=== PATIENT | male | born 1970 | race American Indian/Alaskan Native ===

== ENCOUNTER 2016-04-10 10:34 | Inpatient (IN) | payer OTHER ==
--- NOTE | 2016-04-10 10:52 | Emergency Department Report ---
Chief Complaint: High BP Stated Complaint: HIGH BP Time Seen by Provider: 04/10/16 10:48 - HPI History of Present Illness: Patient here reports that she has been having headache to his left temporal and around his eyes that's 10 out of 10 and throbbing. He said his blood pressures been elevated for 2 days and does not have any history of high blood pressure. He denies any medical history. Paternal and maternal high blood pressure and diabetes. He is also complaining the dizziness and blurred vision. He reports that he has numbness to his right thumb. Denies any shortness of breath or chest pain. His reports that blood pressure at home this morning was 180/ 120 in triage is 150/112. - ROS Review of Systems: All systems are negative unless stated in HPI above. - Exam Vital Signs: Vital Signs 04/10/16 10:39 Temperature 98.5 F Pulse Rate 56 L Respiratory 20 Rate Blood Pressure 150/112 O2 Sat by Pulse 100 Oximetry Physical Exam: General: This is a 45-year-old male well-nourished well-developed that is nontoxic in appearance. Mini-Neuro: GCS of 15, speech is clear and fluid. Negative pronator drift, positive Romberg. Patient alert and oriented 3. No facial drooping noted. CV:BP Pressure is 150/112. Bradycardic at 56. S1-S2. MSE screening note: Focused history and physical exam performed. Due to findings the following was ordered:see [facility] ED Medical Decision Making - Medical Decision Making Medical decision making: Patient seen by provider in triage area. Appropriate protocol activated and patient to main ED to be seen by physician. ED Disposition for MSE Condition: Stable
[2016-04-10 11:36] LABS: Basophils % (Auto) 0.4 % (0.0-1.8); Eosinophils % (Auto) 0.7 % (0.0-4.3); Hematocrit 46.9 % (35.5-45.6); Hemoglobin 15.8 gm/dl (11.8-15.2); Mean Corpuscular HGB Conc 34 % (32-34); Mean Corpuscular Hemoglobin 32 pg (28-32); Mean Corpuscular Volume 96 fl (84-94); Platelet Count 199 K/mm3 (140-440); Red Blood Count 4.88 M/mm3 (3.65-5.03); Red Cell Distribution Width 12.3 % (13.2-15.2); White Blood Count 10.2 K/mm3 (4.5-11.0)
--- NOTE | 2016-04-10 11:37 | Cat Scan Report ---
CT HEAD WITHOUT CONTRAST: HISTORY: Headache. Serial contiguous axial images were obtained through the cranium. Intravenous contrast material was not administered. The ventricles are normal in size and appearance. There is no mass effect or midline shift. No areas of abnormally increased or decreased attenuation are seen. No mass lesion is seen. The mastoid air cells and visualized portions of the sinuses are normal. IMPRESSION: Cranial CT scan within normal limits.
[2016-04-10 11:47] LABS: INR 1.06 (0.87-1.13)
[2016-04-10 11:48] LABS: Partial Thromboplastin Time 31.7 Sec. (24.2-36.6)
[2016-04-10 11:55] LABS: Alanine Aminotransferase 32 units/L (7-56); Albumin 4.4 g/dL (3.9-5); Albumin/Globulin Ratio 1.4 %; Alkaline Phosphatase 104 units/L (35-129); Anion Gap 19 mmol/L; BUN/Creatinine Ratio 21.11; Bilirubin,Total 0.9 mg/dL (0.1-1.2); Blood Urea Nitrogen 19 mg/dL (9-20); Calcium 9.2 mg/dL (8.4-10.2); Carbon Dioxide 23 mmol/L (22-30); Chloride 102.2 mmol/L (98-107); Glucose 98 mg/dL (75-100); Potassium 4.3 mmol/L (3.6-5.0); Sodium 140 mmol/L (137-145); Total Protein 7.5 g/dL (6.3-8.2)
[2016-04-10 11:57] LABS: Bilirubin,Urine NEG (Negative); Blood,Urine NEG (Negative); Ketones,Urine TR mg/dL (Negative); Leukocyte Esterase,Urine NEG (Negative); Mucus,Urine 3+ /HPF; Nitrite,Urine NEG (Negative); Protein,Urine <15 mg/dL mg/dL (Negative); Urobilinogen,Urine < 2.0 mg/dL (<2.0); WBC,Urine < 1.0 /HPF (0.0-6.0)
--- NOTE | 2016-04-10 13:10 | Emergency Department Report ---
HPI - General Chief Complaint: High BP Time Seen by Provider: 04/10/16 10:48 - HPI HPI: Chief complaint: Headache and off balance HPI: Patient with no medical history states he's been having a headache and difficulty seeing and feeling off balance for the last 3 days. Patient's took his blood pressure today and noticed it was 180/120 at home and brought him into the emergency department. Patient denies any other symptoms. Mode of arrival: private car and Source: Patient old chart family member Began: Monday Duration: Gradual onset Context: No upper respiratory infections no previous headaches Quality: Dull behind the eyes and in the temples and on the back of his head Severity: 10 out of 10 Improved with: No improvement with ibuprofen Worsened with: Were when he attempts to walk. She has difficulty walking secondary to his balance. Associated signs and symptoms: Questionable double vision ED Past Medical Hx - Past Medical History Previous Medical History?: No - Surgical History Past Surgical History?: No - Family History Family history: diabetes, hypertension - Social History Smoking Status: Current Every Day Smoker Substance Use Type: Alcohol, Non Opiate Pain - Medications Home Medications: Home Medications Medication Instructions Recorded Confirmed Last Taken Type No Known Home Medications [No 04/10/16 04/10/16 Unknown History Reported Home Medications] ED Review of Systems ROS: Stated complaint: HIGH BP Other details as noted in HPI ROS Constitutional: No fever ENT: No uri symptoms Cardiovascular: No chest pain Respiratory: No sob or cough GI: No nausea vomiting or diarrhea : No dysuria frequency or urgency, Skin: No rash Neuro: See HPI Psych: No depression [place]/lymph: No edema Physical Exam - Physical Exam Vital Signs: Vital Signs 04/10/16 04/10/16 04/10/16 10:39 12:39 12:40 Temperature 98.5 F Pulse Rate 56 L 59 L Respiratory 20 18 Rate Blood Pressure 150/112 136/101 O2 Sat by Pulse 100 98 98 Oximetry 04/10/16 04/10/16 12:41 12:45 Temperature Pulse Rate 59 L 57 L Respiratory 18 19 Rate Blood Pressure 136/101 149/104 O2 Sat by Pulse 98 98 Oximetry Physical Exam: GENERAL: The patient is well-developed well-nourished . HEENT: Normocephalic. Atraumatic. Extraocular motions are intact. Patient has moist mucous membranes. NECK: Supple. No meningitic signs are noted. There is no adenopathy noted. CHEST/LUNGS: Clear to auscultation. There is no respiratory distress noted. HEART/CARDIOVASCULAR: Regular. There is no tachycardia. There is no gallop rub or murmur. ABDOMEN: Abdomen is soft, nontender. Patient has normal bowel sounds. There is no abdominal distention. SKIN: There is no rash. There is no edema. There is no diaphoresis. NEURO: The patient is awake, alert, and oriented. The patient is cooperative. The patient has normal speech. MUSCULOSKELETAL: There is no tenderness or deformity. There is no limitation range of motion. There is no evidence of acute injury. ED Course Vital Signs 04/10/16 04/10/16 04/10/16 10:39 12:39 12:40 Temperature 98.5 F Pulse Rate 56 L 59 L Respiratory 20 18 Rate Blood Pressure 150/112 136/101 O2 Sat by Pulse 100 98 98 Oximetry 04/10/16 04/10/16 12:41 12:45 Temperature Pulse Rate 59 L 57 L Respiratory 18 19 Rate Blood Pressure 136/101 149/104 O2 Sat by Pulse 98 98 Oximetry ED Medical Decision Making - Lab Data Result diagrams: 04/10/16 11:17 04/10/16 11:17 Laboratory Tests 04/10/16 04/10/16 11:17 Unknown PT 13.7 INR 1.06 APTT 31.7 Urine pH 6.0 Ur Specific [place] 1.025 Urine Protein <15 mg/dl Urine Glucose (UA) Neg Urine Ketones Tr Urine Blood Neg Urine Nitrite Neg Urine Bilirubin Neg Urine Urobilinogen < 2.0 Ur Leukocyte Esterase Neg Urine WBC (Auto) < 1.0 Urine RBC (Auto) 2.0 - EKG Data -: EKG Interpreted by Id EKG shows normal: sinus rhythm Rate: normal (63) - EKG Data When compared to previous EKG there are: previous EKG unavailable Interpretation: normal EKG - Radiology Data Radiology results: report reviewed (CT head shows no acute process.) - Medical Decision Making Questionable cerebellar CVA. Patient's blood pressure improved without any treatment and because of the concern for a stroke will not treat it at this time and aggressively in the emergency department. Will admit the patient for further workup to rule out CVA. Critical care attestation.: If time is entered above; I have spent that time in minutes in the direct care of this critically ill patient, excluding procedure time. ED Disposition Clinical Impression: Hypertensive urgency Disposition: OP ADMITTED IP TO THIS HOSP Is pt being admited?: Yes Does the pt Need Aspirin: Yes Condition: Fair Time of Disposition: 13:01 (admit to the hospitalist) - Assessment Assessment Interval: Baseline - Level of Consciousness 1a. Level of Consciousness: alert - LOC Questions 1b. LOC Questions: answers correctly - LOC Command 1c. LOC Commands: performs tasks correctly - Best Gaze 2. Best Gaze: normal - Visual 3. Visual: no visual loss - Facial Palsy 4. Facial Palsy: normal symmetrical movement - Motor Arm 5b. Motor Arm Right: no drift 5a. Motor Arm Left: no drift - Motor Leg 6a. Motor Leg Left: no drift 6b. Motor Leg Right: no drift - Limb Ataxia 7. Limb Ataxia: present 1 limb (Left upper extremity with past pointing) - Sensory 8. Sensory: normal - Best Language 9. Best Language: no aphasia - Dysarthria 10. Dysarthria: normal - Extinction and Inattention 11. Extinction/Inattention: no abnormality - Scoring Total Score: 1 Stroke Severity: Minor Stroke
[2016-04-10] MEDS ORDERED: ASPIRIN PO ONE (13:13)
[2016-04-10] MEDS: ASPIRIN PO SCH (14:36)
[2016-04-10] MEDS ORDERED: COZAAR PO SCH (15:00)
[2016-04-10 15:07] LABS: Alanine Aminotransferase 29 units/L (7-56); Albumin 4.2 g/dL (3.9-5); Albumin/Globulin Ratio 1.5 %; Alkaline Phosphatase 99 units/L (35-129); Anion Gap 15 mmol/L; Bilirubin,Total 0.7 mg/dL (0.1-1.2); Blood Urea Nitrogen 18 mg/dL (9-20); Carbon Dioxide 27 mmol/L (22-30); Chloride 100.8 mmol/L (98-107); Glucose 91 mg/dL (75-100); Potassium 4.6 mmol/L (3.6-5.0); Sodium 138 mmol/L (137-145)
[2016-04-10] MEDS: MORPHINE IV PRN (16:56)
--- NOTE | 2016-04-10 22:52 | History and Physical Report ---
History of Present Illness Date of examination: 04/10/16 Date of admission: 04/10/16 13:14 Chief complaint: Neck, poor balance -2 day duration. History of present illness: Patient is a 45-year-old gentleman who was in apparent good health up until 2 days ago when he started feeling some slight dizziness on ambulating. Progressively was having loss of balance. Seemed to be spinning around and wanted to hold on things while ambulating. This was associated with bitemporal headache, and sometimes occipital.Symptoms are getting progressively worse. 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 Patient had no past history of hypertension. However he's been over about 12months when he went last went to a doctor. Patient was brought to the emergency department. CT scan of the brain was unremarkable for any acute event. Patient denies any nausea vomiting. No chest pain or shortness of breath. Admission was therefore requested for further evaluation. Past History Past Medical History: No medical history Past Surgical History: No surgical history Social history: denies: smoking, alcohol abuse, IV drug use Medications and Allergies Allergies Allergy/AdvReac Type Severity Reaction Status Date / Time No Known Allergies Allergy Unverified 08/20/15 13:19 Home Medications Medication Instructions Recorded Confirmed Last Taken Type No Known Home Medications [No 04/10/16 04/10/16 Unknown History Reported Home Medications] Active Meds: Active Medications Aspirin (Aspirin) 325 mg PO QDAY [facility] Last Admin: 04/10/16 14:36 Dose: Not Given Atorvastatin Calcium (Lipitor) 40 mg PO QHS [facility] Last Admin: 04/10/16 21:10 Dose: 40 mg Losartan Potassium (Cozaar) 50 mg PO QDAY [facility] Last Admin: 04/10/16 15:10 Dose: 50 mg Morphine Sulfate (Morphine) 2 mg IV Q4H PRN PRN Reason: Pain, Moderate (4-6) Last Admin: 04/10/16 16:56 Dose: 2 mg Review of Systems Constitutional: no weight loss, no weight gain, no fever, no chills Ears, nose, mouth and throat: no ear pain, no ear discharge, no tinnitis, no decreased hearing Cardiovascular: no chest pain, no orthopnea, no palpitations, no rapid/ irregular heart beat Respiratory: no cough, no cough with sputum, no excessive sputum Gastrointestinal: no abdominal pain, no nausea, no vomiting, no diarrhea Genitourinary Male: no dysuria, no hematuria Musculoskeletal: no neck stiffness, no neck pain, no hot joints Integumentary: no rash, no pruritis, no redness, no sores Neurological: lack of coordination, vertigo, headaches, no head injury, no transient paralysis, no paralysis, no weakness Psychiatric: no anxiety, no memory loss, no change in sleep habits, no sleep disturbances Endocrine: no cold intolerance, no heat intolerance, no polyphagia, no excessive thirst Hematologic/Lymphatic: no easy bruising, no easy bleeding Allergic/Immunologic: no urticaria, no allergic rhinitis Exam - Constitutional Vitals: Temp Pulse Resp BP Pulse Ox 98.2 F 64 16 136/81 99 04/10/16 21:10 04/10/16 21:10 04/10/16 21:10 04/10/16 21:10 04/10/16 21:10 General appearance: Present: no acute distress - EENT Eyes: Present: PERRL, EOM intact - Neck Neck: Present: supple, normal ROM - Respiratory Respiratory: bilateral: CTA - Cardiovascular Rhythm: regular Heart Sounds: Present: S1 & S2 - Extremities Extremities: no ischemia, pulses intact - Abdominal General gastrointestinal: Present: soft, non-tender, non-distended - Integumentary Integumentary: Present: clear, warm, dry - Musculoskeletal Musculoskeletal: strength equal bilaterally - Psychiatric Psychiatric: appropriate mood/affect - Neurologic Neurologic: CNII-XII intact, other (unsteady gait, positive finger to nose test) Results - Labs CBC & Chem 7: 04/10/16 11:17 04/10/16 14:33 Assessment and Plan - Patient Problems (1) Occipital stroke Diagnosis Date: 04/10/16 Current Visit: Yes Status: Acute Plan to address problem: CT scan was unremarkable. We'll obtain MRI. Carotid Dopplers. If positive I will go for echocardiogram of the heart. Patient on aspirin, Lovenox, atorvastatin, PT OT evaluation and treatment. Neuro check every 4hrs. (2) Hypertensive urgency Diagnosis Date: 04/10/16 Current Visit: Yes Status: Acute Plan to address problem: Progressively optimize blood pressure controlled with losartan. Consequently a low-salt diet and regular office visits with his primary care doctor was advised (3) Benign paroxysmal positional vertigo due to bilateral vestibular disorder Diagnosis Date: 04/10/16 Current Visit: Yes Status: Acute Plan to address problem: Patient gave a history of ambulating with unsteady gait. Occasional feeling of vertigo. If patient had astroke symptoms may be similar however given his age and the severely elevated blood pressure discussed probability. BPPV is less likely as his younger for this condition. We'll therefore obtain an MRI of the brain. Carotid Dopplers were also ordered.
--- NOTE | 2016-04-11 03:27 | Admit Criteria Form ---
Admission Criteria Documentation: VERTIGO Clinical Indications for Admission to Inpatient Care (Place 'X' for any and all applicable criteria): Admission is indicated for ANY ONE of the following(1)(2)(3)(4): [ ]I. Acute bacterial labyrinthitis [ ]II. A suspected etiology that requires admission for treatment [ X]III. Inpatient admission required rather than observation care (Also use Vertigo: Observation Care as appropriate) because of ANY ONE of the following: [ ]a) Hemodynamic instability that is severe or persistent [ X]b) Signs or symptoms that are severe or persistent (eg, vomiting , orthostasis, inability to ambulate) [ ]c) Cardiac arrhythmias of immediate concern [ ]d) Severe (new) neurologic findings requiring inpatient care as indicated by ANY ONE of the following(6)(7) [ ]1) Cerebral bleeding, ischemia, or vasospasm(8)(9) [ ]2) Increased intracranial pressure or hydrocephalus(10) (11)(12) [ ]3) Papilledema [ ]4) Cerebral edema [ ]5) Mass effect on CT scan [ ]e) Vomiting that is severe or persistent [ ]f) Continuous IV infusion of anticoagulation, platelet inhibitor, vasoactive, or antiarrhythmic medication [ ]g) Cerebral bleeding, hydrocephalus, or vasospasm monitoring(14) [ ]h) Increased intracranial pressure or cerebral edema monitoring [ ]i) Other condition, treatment or monitoring requiring inpatient admission [ ]IV. Cerebellar, brainstem, or cerebral ischemia or hemorrhage(5) Extended stay beyond goal length of stay may be needed for evaluating and treating a specific cause of dizziness, including(26): [ ]a) Head injury (27) ( Also use Traumatic Brain Injury, Nonsurgical Treatment guideline) [ ]b) New-onset vertebrobasilar vascular insufficiency(23) [ ]c) Acute Meniere disease with intractable symptoms [ ]d) Cardiac arrhythmias or conduction defects [ ]e) Acute neurologic event causing dizziness [ ]f) Myocardial ischemia [ ]g) Acute bacterial labyrinthitis(1) [ ]h) Severe acute vestibular neuronitis(18) The original [facility] content created by Sada Gonzalez has been revised. The portions of the content which have been revised are identified through the use of italic text or in bold, and Sada Gonzalez has neither reviewed nor approved the modified material. All other unmodified content is copyright [facility]. Please see references footnoted in the original [facility] edition 2016 Admission Criteria Met: Yes
--- NOTE | 2016-04-11 07:15 | Consultation ---
History of Present Illness Consult date: 04/11/16 Reason for Consult: ataxia Chief complaint: aataxia History of present illness: This is a 45 YO M who presented to the ED with ataxia and very elevated blood pressure, 180/120. Per pt no history of hbp but has not seen an MD in 12 months. PT says that the dizziness is better today but still having some ataxia. Also having nystagmus on the day of admission. says pt was having headaches as well. No headache currently. Past History Past Medical History: No medical history Past Surgical History: No surgical history Social history: denies: smoking, alcohol abuse, IV drug use Medications and Allergies Allergies Allergy/AdvReac Type Severity Reaction Status Date / Time No Known Allergies Allergy Unverified 08/20/15 13:19 Home Medications Medication Instructions Recorded Confirmed Last Taken Type No Known Home Medications [No 04/10/16 04/10/16 Unknown History Reported Home Medications] Active Meds: Active Medications Aspirin (Aspirin) 325 mg PO QDAY [facility] Last Admin: 04/10/16 14:36 Dose: Not Given Atorvastatin Calcium (Lipitor) 40 mg PO QHS [facility] Last Admin: 04/10/16 21:10 Dose: 40 mg Losartan Potassium (Cozaar) 50 mg PO QDAY [facility] Last Admin: 04/10/16 15:10 Dose: 50 mg Morphine Sulfate (Morphine) 2 mg IV Q4H PRN PRN Reason: Pain, Moderate (4-6) Last Admin: 04/10/16 16:56 Dose: 2 mg Review of Systems All systems: negative Neurological: ataxia, lack of coordination, vertigo, headaches Physical Examination - Vital Signs Vital Signs: Vital Signs Temp Pulse Resp BP Pulse Ox 98.5 F 56 L 20 150/112 100 04/10/16 10:39 04/10/16 10:39 04/10/16 10:39 04/10/16 10:39 04/10/16 10:39 - Respiratory Respiratory: Present: lungs clear - Cardiovascular Cardiovascular: Present: normal S1, normal S2 - Neurologic Cranial nerve examination: PERRL, EOMI, V1/V2/V3 grossly intact, face symmetric , tongue midline Speech examination: intact Sensorimotor examination: intact Detailed motor examination: grossly full strength in Motor examination - right side: 5/5: biceps, triceps, wrist flexion, wrist extension, software development specialist, hip flexors, knee extensors, dorsiflexion, toe extension (EHL) , plantarflexion Motor examination - left side: 5/5: biceps, triceps, wrist flexion, wrist extension, software development specialist, hip flexors, knee extensors, dorsiflexion, toe extension (EHL) , plantarflexion Detailed sensory examination: light touch, temperature Reflexes: 0: ankle, bicep, knee, tricep Cerebellar examination: ataxia, dysmetria Results - Laboratory Findings CBC and BMP: 04/10/16 11:17 04/10/16 14:33 - Diagnostic Findings Additional findings: ct head without acute changes Assessment and Plan This is a 45 YO M with hypertension who presents with headache, dizziness and ataxia. suspect posterior circulation stroke(cerebellar). Recommend: MRI Brain and MRA head and neck, look closely at the posterior circulation aspirin, statin lipid profile, hemoglobin a1c Pt/OT/ST echo and carotids vte prophylaxis Conservative lowering of his blood pressure Continue care for any medical i ssues as you are doing POC discussed with the patient and his at the bedside. Thank you for this consult. Please call with questions.
--- NOTE | 2016-04-11 10:33 | Echocardiography Report ---
Transthoracic Echocardiogram Indication: CVA BP: 116/78 HR: 59 Conclusions *The left ventricular chamber size is normal. *Mild concentric left ventricular hypertrophy is observed. *Global left ventricular systolic function is normal. *The left atrial chamber size is normal. *The right ventricular cavity size is normal. Findings Procedure Info: The study quality is poor. The study is technically limited due to poor apical windows. The study is technically limited due to the patient's smoking history. Left Ventricle: The left ventricular chamber size is normal. Mild concentric left ventricular hypertrophy is observed. Global left ventricular systolic function is normal. The estimated ejection fraction is 55-60%. Left Atrium: The left atrial chamber size is normal. Right Ventricle: The right ventricular cavity size is normal. The right ventricular global systolic function is normal. Right Atrium: The right atrial cavity size is normal. Interatrial septum appears intact without evidence of shunting. No atrial septal defected is demonstrated by agitated saline contrast. Aortic Valve: The aortic valve is not well visualized. The aortic valve is trileaflet. There is no evidence of aortic regurgitation. There is no evidence of aortic stenosis. Mitral Valve: The mitral valve is not well visualized. There is trace of mitral regurgitation. There is no evidence of mitral stenosis. Tricuspid Valve: The tricuspid valve is not well visualized. There is trace tricuspid regurgitation. The right ventricular systolic pressure is calculated at 17 mmHg. The right ventricular systolic pressure is estimated to be 15-20 mmHg. No pulmonary hypertension is noted. There is no tricuspid stenosis. Pulmonic Valve: There is no evidence of pulmonic regurgitation. There is no pulmonic stenosis. Pericardium: There is no pericardial effusion. No pleural effusion is present. Contrast: Definity was used to optimize study. Intravenous agitated saline contrast was used to assess intracardiac shunting. Measurements Chambers MM Name Value Normal Range IVSd (MM) 1.29 cm (0.6 - 1.1) LVPWd (MM) 0.89 cm (0.6 - 1.1) IVS:LVPW ratio 1.45 ratio - LVIDd (MM) 5.77 cm (3.7 - 5.6) LVIDs (MM) 3.35 cm (2 - 2.8) LV FS (Teichholz) (MM) 41.9 % - LV FS (cube) (MM) 41.9 % - EF Teichholz (MM) 72.2 % - Ao root diameter (MM) 3.2 cm (2 - 3.7) LA dimension (AP) MM 4.2 cm (1.9 - 4) LA:Ao ratio (MM) 1.31 ratio - AV cusp separation (MM) 2.1 cm (1.5 - 2.6) Chambers 2D Name Value Normal Range IVSd (2D) 1.48 cm (0.6 - 1.1) LVPWd 1.3 cm - LVPWd (2D) 1.29 cm (0.6 - 1.1) IVS:LVPW ratio (2D) 1.15 ratio - LVIDd 3.98 cm - LVIDs 2.9 cm - LVIDd (2D) 3.98 cm (3.7 - 5.6) LVIDs (2D) 2.89 cm (2 - 3.8) LV FS (Teichholz) (2D) 27.4 % - LV FS (cube) (2D) 27.4 % - LV EF (2D) 54 % - EF Teichholz (2D) 53.9 % - LA dimension 3.4 cm - Ao root diameter (2D) 3 cm (2 - 3.7) LA dimension (AP) 2D 3.4 cm (1.9 - 4) LA:Ao ratio (2D) 1.13 ratio - Volumes/Mass Name Value Normal Range LA ESV SP 4CH (MOD) 39 ml - LV EDV SP 4CH (MOD) 39 ml - LV ESV SP 4CH (MOD) 12 ml - EF SP 4CH (MOD) 69 % - Diastolic/Systolic Function Name Value Normal Range MV E-wave Vmax 0.8 m/sec - MV deceleration time 222 msec - MV A-wave Vmax 0.94 m/sec - MV E:A ratio 0.8 ratio - LV septal e' Vmax 0.09 m/sec - LV lateral e' Vmax 0.16 m/sec - LV E:e' septal ratio 9.3 ratio - LV E:e' lateral ratio 5 ratio - Aortic Valve Name Value Normal Range AV VTI 31.1 cm - AV mean gradient 6 mmHg - LVOT diameter 2 cm - LVOT Vmax 1.23 m/sec - LVOT peak gradient 6 mmHg - Tricuspid Valve Name Value Normal Range TR Vmax 1.89 m/sec - TR peak gradient 14 mmHg - RAP 3 mmHg - RVSP 17 mmHg - Pulmonic Valve/Qp:Qs Name Value Normal Range PV Vmax 0.93 m/sec - PV peak gradient 3 mmHg - PV acceleration time 158 msec -
[2016-04-11] MEDS ORDERED: ATIVAN IV ONE ×2 (11:30→14:30)
[2016-04-11] MEDS: ASPIRIN PO SCH (12:38)
--- NOTE | 2016-04-11 15:13 | Progress Note ---
Assessment and Plan Assessment and plan: 1. Ataxia- r/o CVA- will f/u MRI brain; cont statin and ASA; PT; OT 2. Elevated BP- prn hydralazine for SBP >/= 160 3. DVT prophyalaxis-lovenox History Interval history: f/u ataxia; ? CVA Patient seen at the bedside; no complaints; weakness better today; not so off balanced Hospitalist Physical - Constitutional Vitals: Temp Pulse Resp BP Pulse Ox 98.3 F 68 18 170/103 100 04/11/16 13:17 04/11/16 13:17 04/11/16 13:17 04/11/16 13:17 04/11/16 13:17 General appearance: Present: no acute distress - EENT Eyes: Present: PERRL, EOM intact. Absent: scleral icterus, conjunctival injection ENT: hearing intact, clear oral mucosa, no oropharyngeal erythema, no poor dentition - Neck Neck: Present: supple, normal ROM. Absent: enlarged thyroid, masses or JVD - Respiratory Respiratory: negative: diminished, rales, rhonchi, wheezing - Cardiovascular Rhythm: regular Heart Sounds: Present: S1 & S2. Absent: gallop - Extremities Extremities: no ischemia, pulses intact, pulses symmetrical, No edema Peripheral Pulses: within normal limits - Abdominal General gastrointestinal: soft, non-tender, non-distended - Integumentary Integumentary: Present: clear - Psychiatric Psychiatric: appropriate mood/affect, intact judgment & insight - Neurologic Neurologic: CNII-XII intact, moves all extremities Results - Labs CBC & Chem 7: 04/10/16 11:17 04/10/16 14:33 Labs: Laboratory Last Values WBC 10.2 K/mm3 (4.5-11.0) 04/10/16 11:17 RBC 4.88 M/mm3 (3.65-5.03) 04/10/16 11:17 Hgb 15.8 gm/dl (11.8-15.2) H 04/10/16 11:17 Hct 46.9 % (35.5-45.6) H 04/10/16 11:17 MCV 96 fl (84-94) H 04/10/16 11:17 MCH 32 pg (28-32) 04/10/16 11:17 MCHC 34 % (32-34) 04/10/16 11:17 RDW 12.3 % (13.2-15.2) L 04/10/16 11:17 Plt Count 199 K/mm3 (140-440) 04/10/16 11:17 Lymph % (Auto) 15.7 % (13.4-35.0) 04/10/16 11:17 Clay % (Auto) 4.6 % (0.0-7.3) 04/10/16 11:17 Eos % (Auto) 0.7 % (0.0-4.3) 04/10/16 11:17 Baso % (Auto) 0.4 % (0.0-1.8) 04/10/16 11:17 Lymph # 1.6 K/mm3 (1.2-5.4) 04/10/16 11:17 Clay # 0.5 K/mm3 (0.0-0.8) 04/10/16 11:17 Eos # 0.1 K/mm3 (0.0-0.4) 04/10/16 11:17 Baso # 0.0 K/mm3 (0.0-0.1) 04/10/16 11:17 Seg Neutrophils % 78.6 % (40.0-70.0) H 04/10/16 11:17 Seg Neutrophils # 8.0 K/mm3 (1.8-7.7) H 04/10/16 11:17 PT 13.7 Sec. (12.2-14.9) 04/10/16 11:17 INR 1.06 (0.87-1.13) 04/10/16 11:17 APTT 31.7 Sec. (24.2-36.6) 04/10/16 11:17 Sodium 138 mmol/L (137-145) 04/10/16 14:33 Potassium 4.6 mmol/L (3.6-5.0) 04/10/16 14:33 Chloride 100.8 mmol/L (98-107) 04/10/16 14:33 Carbon Dioxide 27 mmol/L (22-30) 04/10/16 14:33 Anion Gap 15 mmol/L 04/10/16 14:33 BUN 18 mg/dL (9-20) 04/10/16 14:33 Creatinine 1.0 mg/dL (0.8-1.5) 04/10/16 14:33 Estimated GFR > 60 ml/min 04/10/16 14:33 BUN/Creatinine Ratio 18.00 % 04/10/16 14:33 Glucose 91 mg/dL (75-100) 04/10/16 14:33 Calcium 9.0 mg/dL (8.4-10.2) 04/10/16 14:33 Total Bilirubin 0.7 mg/dL (0.1-1.2) 04/10/16 14:33 AST 23 units/L (5-40) 04/10/16 14:33 ALT 29 units/L (7-56) 04/10/16 14:33 Alkaline Phosphatase 99 units/L (35-129) 04/10/16 14:33 Total Protein 7.0 g/dL (6.3-8.2) 04/10/16 14:33 Albumin 4.2 g/dL (3.9-5) 04/10/16 14:33 Albumin/Globulin Ratio 1.5 % 04/10/16 14:33 Urine Color Yellow (Yellow) 04/10/16 Unknown Urine Turbidity Clear (Clear) 04/10/16 Unknown Urine pH 6.0 (5.0-7.0) 04/10/16 Unknown Ur Specific [employer] 1.025 (1.003-1.030) 04/10/16 Unknown Urine Protein <15 mg/dl mg/dL (Negative) 04/10/16 Unknown Urine Glucose (UA) Neg mg/dL (Negative) 04/10/16 Unknown Urine Ketones Tr mg/dL (Negative) 04/10/16 Unknown Urine Blood Neg (Negative) 04/10/16 Unknown Urine Nitrite Neg (Negative) 04/10/16 Unknown Urine Bilirubin Neg (Negative) 04/10/16 Unknown Urine Urobilinogen < 2.0 mg/dL (<2.0) 04/10/16 Unknown Ur Leukocyte Esterase Neg (Negative) 04/10/16 Unknown Urine WBC (Auto) < 1.0 /HPF (0.0-6.0) 04/10/16 Unknown Urine RBC (Auto) 2.0 /HPF (0.0-6.0) 04/10/16 Unknown Urine Mucus 3+ /HPF 04/10/16 Unknown VASCULAR LAB.PRELIMINARY REPORT.CAROTID DUPLEX DONE.<50% STENOSIS BILATERALLY BY DOPPLER VELOCITIES.ANTEGRADE VERTEBRAL ARTERY FLOW BILATERALLY. ECHO-LVH, mild concentric LVH - Imaging and Cardiology CT Scan - head: report reviewed (no acute abn ) MRI - head: pending
[2016-04-11] MEDS ORDERED: APRESOLINE IV PRN (15:43)
[2016-04-11 16:04] LABS: Basophils % (Auto) 0.7 % (0.0-1.8); Eosinophils % (Auto) 1.1 % (0.0-4.3); Hematocrit 44.7 % (35.5-45.6); Hemoglobin 15.3 gm/dl (11.8-15.2); Mean Corpuscular HGB Conc 34 % (32-34); Mean Corpuscular Hemoglobin 33 pg (28-32); Mean Corpuscular Volume 95 fl (84-94); Platelet Count 190 K/mm3 (140-440); Red Blood Count 4.73 M/mm3 (3.65-5.03); Red Cell Distribution Width 12.6 % (13.2-15.2); White Blood Count 7.9 K/mm3 (4.5-11.0)
[2016-04-11 16:22] LABS: Alanine Aminotransferase 26 units/L (7-56); Albumin 4.4 g/dL (3.9-5); Albumin/Globulin Ratio 1.5 %; Alkaline Phosphatase 101 units/L (35-129); Bilirubin,Total 0.6 mg/dL (0.1-1.2); Blood Urea Nitrogen 18 mg/dL (9-20); Carbon Dioxide 27 mmol/L (22-30); Chloride 98.9 mmol/L (98-107); Glucose 98 mg/dL (75-100); Potassium 4.4 mmol/L (3.6-5.0); Sodium 137 mmol/L (137-145); Total Protein 7.3 g/dL (6.3-8.2)
[2016-04-11 16:23] LABS: Anion Gap 16 mmol/L
--- NOTE | 2016-04-11 16:27 | Magnetic Resonance Report ---
MRI OF THE BRAIN WITHOUT CONTRAST: HISTORY: Stroke. FINDINGS: The posterior fossa is normal. The ventricles are normal in size and contour. There are no masses or extra-axial collections. The means-white matter junction is normal. There is no restricted diffusion. The pituitary gland is normal. The visualized extracranial structures are normal. IMPRESSION: Normal study.
[2016-04-11] MEDS: MORPHINE IV PRN (17:08)
[2016-04-11] MEDS: LOVENOX SUB-Q SCH (19:52)
[2016-04-12] MEDS: ASPIRIN PO SCH (09:32)
[2016-04-12] MEDS: LOVENOX SUB-Q SCH (09:32)
--- NOTE | 2016-04-12 10:20 | Discharge Summary ---
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 But hope that pt can be seen tomorrw or 04/10/16 23:07 Occupational Therapy Evaluate and Treat [CONS] Routine Comment: Reason For Exam: possible stroke and BPPV Physical Therapy Evaluation and Treat [CONS] Routine Comment: Reason For Exam: stroke Mode of Transport?: Wheelchair Primary care physician: JOEY SENA Hospitalization Condition: Good Hospital course: This is a 45 YO M who presented to the ED with ataxia and very elevated blood pressure, 180/120. Per pt no history of hbp but has not seen an MD in 12 months. PT says that the dizziness and ataxia is better today. Also having nystagmus on the day of admission. says pt was having headaches as well. No headache currently. The patient's symptoms have essentially resolved. Neurology saw the patient in consultation and felt patient may have had a cerebellar CVA. However, the patient underwent MRI of the brain which found to be normal. Echocardiogram revealed left ventricular hypertrophy but otherwise normal. Carotid ultrasound less than 50% stenosis bilaterally. Ph per their ysical therapy cleared the patient per their evaluation. Patient will be discharged with Norvasc daily. Patient is also to take aspirin daily and is to follow-up with neurology. Dedicated discharge time 35 minutes. Disposition: DISCHARGED TO HOME OR SELFCARE Time spent for discharge: 35 Core Measure Documentation - Palliative Care Palliative Care/ Comfort Measures: Palliative Care/Comfort Measures - Core Measures Any of the following diagnoses?: none Exam - Constitutional Vitals: Temp Pulse Resp BP Pulse Ox 98.1 F 61 20 135/92 99 04/12/16 07:38 04/12/16 07:38 04/12/16 07:38 04/12/16 07:38 04/12/16 07:38 General appearance: Present: no acute distress, well-nourished - EENT Eyes: Present: PERRL ENT: hearing intact, clear oral mucosa - Neck Neck: Present: supple, normal ROM - Respiratory Respiratory effort: normal Respiratory: bilateral: CTA - Cardiovascular Heart Sounds: Present: S1 & S2. Absent: rub, click - Extremities Extremities: pulses symmetrical, No edema Peripheral Pulses: within normal limits - Abdominal General gastrointestinal: Present: soft, non-tender, non-distended, normal bowel sounds Male genitourinary: Present: normal - Integumentary Integumentary: Present: clear, warm, dry - Musculoskeletal Musculoskeletal: gait normal, strength equal bilaterally - Psychiatric Psychiatric: appropriate mood/affect, intact judgment & insight - Neurologic Neurologic: CNII-XII intact, moves all extremities Plan Activity: advance as tolerated Weight Bearing Status: Full Weight Bearing Diet: low cholesterol, low salt Follow up with: JOEY SENA MD [Primary Care Provider] - 3-5 Days ADARSH TAVAREZ MD [Staff Physician] - 7 Days Prescriptions: Aspirin [Aspirin TAB] 325 mg PO QDAY #30 tablet AtorvaSTATin [Lipitor] 40 mg PO QHS #30 tablet Meclizine [Antivert] 25 mg PO TID PRN #30 tablet PRN Reason: Vertigo amLODIPine [Norvasc] 5 mg PO DAILY #30 tab
[2016-04-12 11:50] VITALS: BP 141/96
--- NOTE | 2016-04-13 11:12 | Vascular Lab Report ---
CAROTID DUPLEX STUDY: RIGHT PSVEDV CCA [id number] CCA DIST:[id number] ICA PROX:7032 ICA MID:7932 ICA DIST:6833 ECA: 8321 VERT: 60 17 LEFT PSVEDV CCA PROX:[id number] CCA DIST:[id number] ICA PROX:45497 ICA MID:[id number] ICA DIST:[id number] ECA: 8314 VERT: 71 19 REASON FOR EXAM: Stroke. COMMENTS ON THE RIGHT: Doppler frequency analysis is consistent with 16 to 49 percent diameter reduction of the internal carotid artery. Minimal amount of plaque is seen. The common carotid artery is patent. The external carotid artery is patent. The vertebral artery has antegrade flow. COMMENTS ON THE LEFT: Doppler frequency analysis is consistent with 16 to 49 percent diameter reduction of the internal carotid artery. Minimal amount of plaque is seen. The common carotid artery is patent. The external carotid artery is patent. The vertebral artery has antegrade flow. IMPRESSION: Less than 50% diameter reduction in the internal carotid arteries bilaterally. Consider repeat carotid artery duplex in 12 months.
== END 2016-04-12 13:05 | disposition home or self-care (01) | DRG 305 ==
LOC: ED 10:34 → 4A 13:14
PROVIDERS: ADMIT Family Medicine; ATTEND Hospitalist
DX: I16.0 Hypertensive urgency (principal); I10 Essential (primary) hypertension; H81.10 Benign paroxysmal vertigo, unspecified ear; H81.93 Unspecified disorder of vestibular function, bilateral; H55.00 Unspecified nystagmus
CPT/HCPCS: 36415; 70450; 70551; 80053; 81001; 85025; 85610; 85730; 93005; 93010; 93306; 93880; A9270-GY; J1650; J2060; J2270

== ENCOUNTER 2017-07-07 16:41 | Emergency (ER) | payer BC ==
[2017-07-07] MEDS ORDERED: TYLENOL PO ONE (17:15)
[2017-07-07] MEDS ORDERED: TYLENOL ONE (17:16)
[2017-07-07] MEDS ORDERED: TORADOL IV ONE (17:53)
[2017-07-07] MEDS ORDERED: ZOFRAN IV ONE (17:53)
[2017-07-07] MEDS ORDERED: NACL 0.9% 1000 ML 1,000 ML IV ONE (17:53)
[2017-07-07] MEDS ORDERED: ANTIVERT PO ONE (17:54)
--- NOTE | 2017-07-07 17:56 | Emergency Department Report ---
ED Headache HPI - General Chief Complaint: Headache Stated Complaint: HEADACHE Time Seen by Provider: 07/07/17 17:47 - History of Present Illness Initial Comments: Patient is a 47-year-old male who is presenting with headache. Patient states that he has a right-sided headache last 2 days. Patient states his took his blood pressure and it was elevated to 180 systolic. 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 Patient has had nausea and one episode of vomiting this morning. Patient does not have a history of headaches. There is no history of recent trauma to the head. Patient's 89 fevers chills cough congestion and abdominal pain. Patient states the headache is a 7 out of 10 as a pounding headache. Allergies/Adverse Reactions: Allergies No Known Allergies Allergy (Verified 07/07/17 17:10) Home Medications: Ambulatory Orders Aspirin [Aspirin TAB] 325 mg PO QDAY #30 tablet 04/12/16 AtorvaSTATin [Lipitor] 40 mg PO QHS #30 tablet 04/12/16 Meclizine [Antivert] 25 mg PO TID PRN #30 tablet 04/12/16 amLODIPine [Norvasc] 5 mg PO DAILY #30 tab 04/12/16 Lisinopril/Hydrochlorothiazide [Zestoretic 10-12.5 mg Tablet] 1 each PO DAILY # 30 tablet 07/07/17 ED Review of Systems ROS: Stated complaint: HEADACHE Other details as noted in HPI Comment: All other systems reviewed and negative ED Past Medical Hx - Past Medical History Previous Medical History?: No - Surgical History Past Surgical History?: No - Social History Smoking Status: Never Smoker Substance Use Type: None - Medications Home Medications: Home Medications Medication Instructions Recorded Confirmed Last Taken Type Aspirin [Aspirin TAB] 325 mg PO QDAY #30 tablet 04/12/16 Unknown Rx AtorvaSTATin [Lipitor] 40 mg PO QHS #30 tablet 04/12/16 Unknown Rx Meclizine [Antivert] 25 mg PO TID PRN #30 tablet 04/12/16 Unknown Rx amLODIPine [Norvasc] 5 mg PO DAILY #30 tab 04/12/16 Unknown Rx Lisinopril/Hydrochlorothiazide 1 each PO DAILY #30 tablet 07/07/17 Unknown Rx [Zestoretic 10-12.5 mg Tablet] ED Physical Exam - General Limitations: No Limitations General appearance: alert, in no apparent distress - Head Head exam: Present: atraumatic, normocephalic - Eye Eye exam: Present: normal appearance - ENT ENT exam: Present: mucous membranes moist - Neck Neck exam: Present: normal inspection - Respiratory Respiratory exam: Present: normal lung sounds bilaterally. Absent: respiratory distress, wheezes, rales, rhonchi - Cardiovascular Cardiovascular Exam: Present: regular rate, normal rhythm. Absent: systolic murmur, diastolic murmur, rubs, gallop - GI/Abdominal GI/Abdominal exam: Present: soft, normal bowel sounds. Absent: distended, tenderness, guarding, rebound, rigid - Rectal Rectal exam: Present: deferred - Extremities Exam Extremities exam: Present: normal inspection - Back Exam Back exam: Present: normal inspection - Neurological Exam Neurological exam: Present: alert, oriented X3, CN II-XII intact, normal gait, reflexes normal. Absent: motor sensory deficit - Psychiatric Psychiatric exam: Present: normal affect, normal mood - Skin Skin exam: Present: warm, dry, intact, normal color. Absent: rash ED Course Vital Signs 07/07/17 07/07/17 17:10 18:57 Temperature 98.8 F 98.2 F Pulse Rate 70 59 L Respiratory 16 18 Rate Blood Pressure 141/81 Blood Pressure 132/93 [Left] O2 Sat by Pulse 98 98 Oximetry ED Medical Decision Making - Lab Data Result diagrams: 07/07/17 18:11 07/07/17 18:11 - Medical Decision Making Patient's headache improved with meds. Patient's blood pressure continued to improve as well. Patient's laboratory studies showed no acute abnormality. Patient was started on Zestoretic be discharged home. Critical care attestation.: If time is entered above; I have spent that time in minutes in the direct care of this critically ill patient, excluding procedure time. ED Disposition Clinical Impression: Hypertensive urgency Disposition: DC-01 TO HOME OR SELFCARE Is pt being admited?: No Does the pt Need Aspirin: No Condition: Stable Instructions: Hypertension (ED) Prescriptions: Lisinopril/Hydrochlorothiazide [Zestoretic 10-12.5 mg Tablet] 1 each PO DAILY # 30 tablet Referrals: RACHEL BURT JR, MD [Staff Physician] - 3-5 Days PRIMARY CARE, [Primary Care Provider] - 7-10 days
--- NOTE | 2017-07-07 18:08 | Cat Scan Report ---
FINAL REPORT EXAM: CT HEAD/BRAIN WO CON HISTORY: headache TECHNIQUE: Standard unenhanced CT of the head at 5.0 millimeter axial increments. PRIORS: None. FINDINGS: The ventricular system is normal in size and configuration. There is no evidence for parenchymal volume loss. There is no evidence for mass lesion, mass effect, midline shift, acute intracranial hemorrhage, or acute ischemia/ infarction. No evidence for acute skull fracture is seen. No abnormality in the overlying scalp soft tissues is seen. Visualized paranasal sinuses are clear. IMPRESSION: Negative CT of the head. No acute intracranial process noted.
[2017-07-07 18:25] LABS: Basophils # (Auto) 0.1 K/mm3 (0.0-0.1); Basophils % (Auto) 0.5 % (0.0-1.8); Eosinophils # (Auto) 0.1 K/mm3 (0.0-0.4); Eosinophils % (Auto) 0.8 % (0.0-4.3); Hematocrit 42.2 % (35.5-45.6); Hemoglobin 14.6 gm/dl (11.8-15.2); Lymphocytes # (Auto) 2.2 K/mm3 (1.2-5.4); Lymphocytes % (Auto) 22.7 % (13.4-35.0); Mean Corpuscular HGB Conc 35 % (32-34); Mean Corpuscular Hemoglobin 33 pg (28-32); Mean Corpuscular Volume 95 fl (84-94); Monocytes # (Auto) 0.5 K/mm3 (0.0-0.8); Monocytes % (Auto) 5.3 % (0.0-7.3); Platelet Count 198 K/mm3 (140-440); Red Blood Count 4.46 M/mm3 (3.65-5.03)
[2017-07-07 18:38] LABS: BUN/Creatinine Ratio 18; Blood Urea Nitrogen 16 mg/dL (9-20); Calcium 8.8 mg/dL (8.4-10.2); Hemolysis Index 6
[2017-07-07 19:45] VITALS: BP 150/93
== END 2017-07-07 20:04 | disposition home or self-care (01) ==
LOC: ED 16:41
DX: I10 Essential (primary) hypertension (principal); Z79.82 Long term (current) use of aspirin
CPT/HCPCS: 36415; 70450; 80048; 85025; 96361; 96374; 96375; 99284; J1885; J2405; J7030

== ENCOUNTER 2019-01-22 14:31 | Emergency (ER) | payer BC ==
[2019-01-22 14:41] VITALS: BP 159/104
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
[2019-01-22] MEDS ORDERED: NORCO 5/325 PO ONE (17:03)
[2019-01-22] MEDS ORDERED: IBUPROFEN PO ONE (17:03)
== END 2019-01-22 17:30 | disposition home or self-care (01) ==
LOC: ED 14:31
DX: S60.221A Contusion of right hand, initial encounter (principal); Z79.899 Other long term (current) drug therapy; V49.49XA Driver injured in collision with other motor vehicles in traffic accident, initial encounter; Y93.89 Activity, other specified; Y92.410 Unspecified street and highway as the place of occurrence of the external cause; Y99.8 Other external cause status

== ENCOUNTER 2019-02-15 11:30 | Outpatient (CLI) | payer BC ==
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
== END 2019-02-15 11:31 | disposition home or self-care (01) ==
LOC: XRAY 11:30
PROVIDERS: ATTEND Orthopaedic Surgery
DX: M48.07 Spinal stenosis, lumbosacral region (principal); M12.88 Other specific arthropathies, not elsewhere classified, other specified site; M77.8 Other enthesopathies, not elsewhere classified; R10.2 Pelvic and perineal pain; M79.641 Pain in right hand
CPT/HCPCS: 72110; 72170

== ENCOUNTER 2020-08-05 14:48 | Emergency (ER) | payer BC, OTHER ==
[2020-08-05 17:55] VITALS: BP 170/111
[2020-08-05] MEDS ORDERED: TETANUS,DIPH,PERTUSS(ACELL) VACCINE 0.5 ML SYRINGE IM ONE (18:38)
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
== END 2020-08-05 20:25 | disposition home or self-care (01) ==
LOC: ED 14:48
DX: S30.1XXA Contusion of abdominal wall, initial encounter (principal); M54.9 Dorsalgia, unspecified; I10 Essential (primary) hypertension; Z79.899 Other long term (current) drug therapy; V49.49XA Driver injured in collision with other motor vehicles in traffic accident, initial encounter; Y93.89 Activity, other specified; Y92.488 Other paved roadways as the place of occurrence of the external cause; Y99.8 Other external cause status
CPT/HCPCS: 72072; 72100; 90471; 90715; 99283